=== PATIENT | female | born 1980 | race Caucasian/White ===

== ENCOUNTER 2022-07-11 09:22 | Emergency (ER) | payer OTHER, SELFPAY ==
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
[2022-07-11 09:36] VITALS: BP 114/79; PULSE 96; RESP 17; TEMP 35.8; O2SAT 98; BMI 33.9
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
== END 2022-07-11 12:12 | disposition home or self-care (01) ==
PROVIDERS: Emergency Provider Emergency Medicine
DX: Z04.1 Encounter for examination and observation following transport accident (principal); M54.50 Low back pain, unspecified; M79.10 Myalgia, unspecified site
CPT/HCPCS: 72100; 72220; 99283

== ENCOUNTER 2023-06-01 19:45 | Emergency (ER) | payer OTHER, SELFPAY ==
[2023-06-01 19:48] VITALS: BP 121/81; PULSE 100; RESP 18; TEMP 36.2; O2SAT 98; BMI 37.9
--- NOTE | 2023-06-01 19:53 | ED_ITS ---
HPI - General Adult General Chief complaint: Ear Problems Stated complaint: left ear plugged,cough,sinus pressure Time Seen by Provider: 06/01/23 20:42 Source: patient Mode of arrival: ambulatory Limitations: no limitations History of Present Illness HPI narrative: Patient is a 43-year-old female presenting to the emergency depart with complaint of left ear pain, wheezing, cough and nasal congestion since yeste rday. Denies fevers. Reports history of perforated eardrum to left ear 2 years ago. MD complaint: Left ear pain Onset (ago): day(s) Severity: moderate Quality: aching Pain Consistency: constant Associated symptoms: cough Treatments prior to arrival: none Related Data Previous Rx's Medication Instructions Recorded acetaminophen 500 mg tablet 500 mg PO Q6H PRN fever or pain 07/11/22 (Tylenol Extra Strength) #14 tabs cyclobenzaprine 5 mg tablet 5 mg PO Q8H PRN pain (scale score 07/11/22 7-10) 5 days #14 tabs lidocaine 5 % topical patch 1 patch topical DAILY PRN pain #30 07/11/22 (Lidoderm) ea naproxen 500 mg tablet 500 mg PO BID PRN pain 10 days #20 07/11/22 tabs amoxicillin 875 mg tablet 875 mg PO BID #14 tabs 06/01/23 Allergies Allergy/AdvReac Type Severity Reaction Status Date / Time seafood Allergy Angioedema Verified 06/01/23 19:48 Review of Systems Review of Systems: as per HPI. Yes all other systems are reviewed and are negative Constitutional: Constitutional: Reports as per HPI [facility] Social History Social History Alcohol intake: never Physical Exam ED Vital Signs: Vital Signs - 24 hr 06/01/23 19:48 Temperature 97.2 F Pulse Rate 100 Respiratory Rate 18 Blood Pressure 121/81 Pulse Oximetry 98 Oxygen Delivery Method Room Air BMI result Body Mass Index 37.9 Vital signs have been reviewed and appear to be correct. Blood pressure normal. Heart rate normal. Respiratory rate normal. Temperature normal. Oxygen saturation normal. Const General: cooperative, healthy appearing and no acute distress Orientation/consciousness: oriented to person, oriented to place, oriented to time and patient oriented x3 Limitations: no limitations HENMT Head: Yes normocephalic and Yes atraumatic Ears: external ears normal, TM normal on the right, mastoids normal bilaterally and TM abnormal wth effusion and erythematous; not perforated General nose exam: Normal external nose present Face and sinus: Yes face symmetric Mouth: oropharynx normal and moist mucous membranes Throat: Yes uvula midline Eyes Pupils: Equal, round and reactive pupils present Neck Neck: Yes normal visual inspection and Yes supple Resp Effort & Inspection: normal respiratory effort and able to speak in complete sentences Auscultation: clear to auscultation bilaterally Cardio Rate: regular rate Rhythm: regular rhythm Heart sounds: S1 normal heart sound present and S2 normal heart sound present GI Palpation (GI): Soft to palpation and nontender Auscultation: normoactive bowel sounds General: Yes no CVA tenderness Back/Spine/Pelvis Back: no CVA tenderness Skin General skin exam: elasticity normal and turgor normal Neuro General: oriented to person, oriented to place, oriented to time, patient oriented x3, moves all extremities, no focal motor deficits and CN's II-XI intact bilaterally Cranial nerves: Yes Equal, round and reactive pupils present Cognition (Neuro): normal cognition Extrem General: Yes full ROM, Yes no pedal edema and Yes no calf tenderness Psych Mental Status: mental status grossly normal Affect: normal affect Thought process: Normal thought process present Medical Decision Making Medical Decision Making [facility] Narrative: Patient is a 43-year-old female presenting to the emergency depart with complaint of left ear pain, wheezing, cough and nasal congestion since yesterday. On exam patient is awake, A+Ox3, VS WNL, afebrile, normal neurological exam without focal deficits, physical exam findings as above. Given reported symptoms and physical exam findings, initial differential includes Otitis media, otitis externa, viral illness, COVID, influenza. Viral swabs negative. Will treat for AOM with amoxicillin. Instructed patient to follow up with PCP. Return precautions discussed. Patient verbalized understanding of and agreement with plan. Differential Diagnosis Differential Diagnoses: The differential diagnosis associated with the presentation includes As per [facility] Lab Data [facility] Lab Attestation statement: I reviewed the patient's lab results. As per [facility]. Labs: Lab Results 06/01/23 Range/Units 20:12 COVID-19 (ALFRED) Negative (Negative) COVID-19 Clin Com See Note Influenza Type A (NAYELY) Negative (Negative) Influenza Type B (NAYELY) Negative (Negative) Influenza A & B Note See Note External Record Review External record reviewed: Inpatient record, Office record and Outpatient record Prescription Management I considered prescription management with: Antibiotic Discharge Plan Discharge Clinical Impression: Acute otitis media Qualifiers: Laterality: left Patient Disposition: Home, Self-Care Instructions: Ear Infection (ED) Additional Instructions: You were evaluated in the emergency department today for ear pain. Your evaluation suggests that your pain is due to an ear infection. Please take your prescribed antibiotics as directed for the full course of the medication. Please follow up with your primary care provider within two days. Return to the emergency department if you experience hearing loss, discharge from your ear, headaches, fevers, recurrent vomiting, or any other concerning symptoms. Prescriptions: New amoxicillin 875 mg tablet 875 mg PO BID Qty: 14 0RF No Action acetaminophen [Tylenol Extra Strength] 500 mg tablet 500 mg PO Q6H PRN (Reason: fever or pain) Qty: 14 0RF lidocaine [Lidoderm] 5 % adhesive patch,medicated 1 patch topical DAILY MDD remove after 12 hours PRN (Reason: pain) Qty: 30 0RF Rx Instructions: leave on most painful area for up to 12 hrs naproxen 500 mg tablet 500 mg PO BID PRN (Reason: pain) 10 Days Qty: 20 0RF cyclobenzaprine 5 mg tablet 5 mg PO Q8H PRN (Reason: pain (scale score 7-10)) 5 Days Qty: 14 0RF
[2023-06-01 20:32] LABS: COVID-19 Test Negative (Negative); IDNOW Serial# 58CA691E
[2023-06-01 20:33] LABS: IDNOW Serial# 08D9AD1C; Influenza A Negative (Negative); Influenza B2 Negative (Negative)
== END 2023-06-01 20:50 | disposition home or self-care (01) ==
LOC: HO.ED 20:49
PROVIDERS: Registered Nurse Emergency; Emergency Provider Emergency Medicine
DX: H66.92 Otitis media, unspecified, left ear (principal); Z11.52 Encounter for screening for COVID-19
CPT/HCPCS: 87502; 87635; 99282; 99283